=== PATIENT | male | born 1965 | race Caucasian/White ===

== ENCOUNTER 2017-11-01 18:14 | Emergency (ER) | payer OTHER, SELFPAY ==
[2017-11-01 18:15] VITALS: BP 139/86; PULSE 114; RESP 16; TEMP 37.1; O2SAT 96; BMI 34.7
--- NOTE | 2017-11-01 18:25 | RAD_ITS ---
STUDY: X-RAY - RIGHT ANKLE REASON FOR EXAM: Male, 52 years old. Pain after fall. TECHNIQUE: 3 view(s) of the ankle. COMPARISON: None. FINDINGS: There is a lateral malleolus fracture. Medial malleolus is intact. Normal tibiotalar articulation and ankle mortise. There is a enthesophyte arising from the posterior calcaneus at the Achilles tendon insertion site. There are degenerative changes of the mid and hindfoot. There is soft tissue swelling overlying the medial and lateral malleolus. RAD/Ankle min 3 Views IMPRESSION: Lateral malleolus fracture. Electronically Signed: Nata Gauthier MD at 19:41 EST Tel , Service support ,
--- NOTE | 2017-11-01 18:27 | ED.DCSUM_ITS ---
- ER Visit Summary Date of Service: 11/01/17 Chief Complaint: Right ankle pain History of Present Illness: The patient is a 52 M who slipped on some ice yesterday. He twisted his right ankle and fell. He was able to ambulate to the fall but is very painful. He put ice on it yesterday and took no medications for it. No previous surgeries. He noticed a lot of swelling and bruising today which is why he came in Physical Examination: Vital signs reviewed. Right ankle is tender diffusely. It is diffusely swollen. He has ecchymosis on the medial side. Range of motion is painful in any direction. No fifth metatarsal or fibular head tenderness Test Results: Right ankle x-ray reveals a distal fibula fracture. The mortise is intact Emergency Department Course and Treatment: Patient was given [place] here. He will be placed in a walking boot. Short course of [place] for home. He will ice and elevate and will follow up with his PCP Treatment Plan: [] Disposition: Discharge Impression: Right distal fibular fracture, closed This note was generated with [employer] dictation software. It may contain incorrect words, spelling, and punctuation that were not noted in review of the chart prior to signing ED Disposition - Plan for ED Patient: Chief Complaint: Lower Extremity Injury Referrals: Care Physician,No Primary [Primary Care Provider] -
[2017-11-01] MEDS: HYDROcodone Bitartrate/Apap 5/325 Tablet PO (18:37)
--- NOTE | 2017-11-01 19:50 | ED.DEP ---
ED Disposition - Plan for ED Patient: Disposition: Home or Assisted Living Chief Complaint: Lower Extremity Injury Instructions: ED Fx Ankle Lateral Malleolus Prescriptions: Hydrocodone Bitart/Apap 5-325 [[place] 5/325] 1 - 2 tab PO Q6H PRN PRN 3 Days #10 tab PRN Reason: Pain Referrals: Care Physician,No Primary [Primary Care Provider] -
[2017-11-01 20:03] VITALS: BP 136/94; PULSE 115; RESP 22
== END 2017-11-01 20:07 | disposition home or self-care (01) ==
PROVIDERS: Emergency Provider Emergency Medicine
DX: S82.831A Other fracture of upper and lower end of right fibula, initial encounter for closed fracture (principal); Z72.0 Tobacco use; W00.0XXA Fall on same level due to ice and snow, initial encounter; Y93.01 Activity, walking, marching and hiking; Y92.89 Other specified places as the place of occurrence of the external cause; Y99.8 Other external cause status
CPT/HCPCS: 73610; 99283